=== PATIENT | female | born 1995 | race Caucasian/White ===

== ENCOUNTER 2022-06-16 19:10 | Emergency (ER) | payer OTHER | END 2022-06-16 20:30 | disposition home or self-care (01) | LOC: MADERS 19:10 | DX: L03.032 Cellulitis of left toe (principal); J02.9 Acute pharyngitis, unspecified | CPT/HCPCS: 87430; 99283 ==

== ENCOUNTER 2022-06-25 22:33 | Emergency (ER) | payer OTHER | END 2022-06-26 00:51 | disposition home or self-care (01) | LOC: MADERS 22:33 | DX: K56.41 Fecal impaction (principal); N81.6 Rectocele | CPT/HCPCS: 99283 ==

== ENCOUNTER 2024-06-11 04:55 | Emergency (ER) | payer BC | END 2024-06-11 05:19 | disposition left against medical advice (07) | LOC: MADERS 04:55 | DX: K08.89 Other specified disorders of teeth and supporting structures (principal); F17.290 Nicotine dependence, other tobacco product, uncomplicated | CPT/HCPCS: 99282 ==